=== PATIENT | male | born 1990 ===

== ENCOUNTER 2018-07-22 22:17 | Emergency (ER) | payer BC ==
[2018-07-22 22:41] VITALS: RESP 18; TEMP 98.3; O2SAT 100
[2018-07-23] MEDS ORDERED: Tobramycin 0.3% OPH OINT OD STA (01:20)
--- NOTE | 2018-07-23 01:28 | ED PDOC ---
Arrival/HPI - General Chief Complaint: Eye Problem Time Seen by Provider: 07/23/18 00:56 Historian: Patient - History of Present Illness Narrative History of Present Illness (Text): 07/23/18 03:32 28 yo M states that he was scratched in the R eye accidentally by his dog when he went to pet his dog and the dog got excited. Reports of pain, redness and tearing to the R eye. Reports no decrese in vision, contact lens wear, headache, fever, recent URI. Reports no other injuries. Past Medical History - Cardiac Hx Cardiac Disorders: No - Neurological Other/Comment: brain cyst - Psychiatric Hx Substance Use: No - Anesthesia Hx Anesthesia: No Hx Anesthesia Reactions: No Hx Malignant Hyperthermia: No Family/Social History Family/Social History: No Known Family HX Smoking Status: Never Smoked Hx Alcohol Use: No Hx Substance Use: No Allergies/Home Meds Allergies/Adverse Reactions: Allergies No Known Allergies Allergy (Verified 07/22/18 22:41) Review of Systems - Review of Systems Constitutional: absent: Fatigue, Fevers Eyes: Photophobia, Eye Pain. absent: Vision Changes ENT: absent: Sore Throat, Rhinorrhea Respiratory: absent: SOB, Cough Neurological: absent: Headache, Dizziness Physical Exam Vital Signs Temp Pulse Resp BP Pulse Ox 07/22/18 22:38 98.3 F 81 18 134/84 100 Temperature: Afebrile Blood Pressure: Normal Pulse: Regular Respiratory Rate: Normal Appearance: Positive for: Well-Appearing, Non-Toxic, Comfortable Pain Distress: None Mental Status: Positive for: Alert and Oriented X 3 - Systems Exam Head: Present: Atraumatic, Normocephalic Pupils: Present: PERRL Extroacular Muscles: Present: EOMI Conjunctiva: Present: Injected, Other (+small corneal abrasion at 6 o'clock, no FB) Mouth: Present: Moist Mucous Membranes Neck: Present: Normal Range of Motion Neurological: Present: GCS=15, CN II-XII Intact, Speech Normal, Motor Func Grossly Intact, Normal Sensory Function Skin: Present: Warm, Dry, Normal Color. No: Rashes Psychiatric: Present: Alert, Oriented x 3, Normal Insight, Normal Concentration Medical Decision Making ED Course and Treatment: 07/23/18 03:34 Visual acuity : L 20/25 R 20/20. Medicated with motrin po and tobramycin ophthalmic ointment. On re-evaluation, patient reports improvement of symptoms, denies any decrease in vision. On exam, patient remains AAOx3, in no acute distress. Diagnosis of corneal abrasion d/w the patient. Based on history, exam and diagnostic results, plan will be for outpatient follow up. Patient instructed to follow-up with referral provided in 1-2 days without fail. Advised to take medication as prescribed. Return to the emergency room at any time for any new or worsening symptoms. Patient states he fully agrees with and understands discharge instructions. States that he agrees with the plan and disposition. Verbalized and repeated discharge instructions and plan. I have given the patient opportunity to ask any additional questions. - Medication Orders Current Medication Orders: Ibuprofen (Motrin Tab) 600 mg PO STAT STA Stop: 07/23/18 01:21 Tobramycin Sulfate (Tobrex 0.3% Ophth Oint) 1 appl OD STAT STA Stop: 07/23/18 01:21 - PA / APPLIED TECHNOLOGIST / Resident Statement MD/DO has reviewed & agrees with the documentation as recorded. Disposition/Present on Arrival - Present on Arrival Any Indicators Present on Arrival: No History of DVT/PE: No History of Uncontrolled Diabetes: No Urinary Catheter: No History of Decub. Ulcer: No History Surgical Site Infection Following: None - Disposition Have Diagnosis and Disposition been Completed?: Yes Diagnosis: Corneal abrasion, right Disposition: HOME/ ROUTINE Disposition Time: :20 Patient Plan: Discharge Condition: STABLE Discharge Instructions (ExitCare): Corneal Abrasion (DC) Additional Instructions: Thank you for letting us take care of you today. You were treated for corneal abrasion to the R eye. The emergency medical care you received today was directed at your acute symptoms. If you were prescribed any medication, please fill it and take as directed. It may take several days for your symptoms to resolve. Return to the Emergency Department if your symptoms worsen, do not improve, or if you have any other problems. Please contact your doctor in 2 days for re-evaluation and follow up / or call one of the physicians/clinics you have been referred to that are listed on the Patient Visit Information form that is included in your discharge packet. Bring any paperwork you were given at discharge with you along with any medications you are taking to your follow up visit. Our treatment cannot replace ongoing medical care by a primary care provider (PCP) outside of the emergency department. Thank you for allowing the [facility] team to be part of your care today. Prescriptions: Naproxen 500 mg PO BID PRN #20 tablet PRN Reason: Pain, Moderate (4-7) Tobramycin [Tobrex] 1 applic OD TID #1 oint...g. Referrals: Hakan Addison [Staff Provider] - Follow up with primary Forms: [employer] (Finnish), WORK NOTE
[2018-07-23 01:45] VITALS: BP 118/71; PULSE 72
== END 2018-07-23 01:43 | disposition home or self-care (01) ==
LOC: ED 22:17
DX: S05.01XA Injury of conjunctiva and corneal abrasion without foreign body, right eye, initial encounter (principal); W54.1XXA Struck by dog, initial encounter